=== PATIENT | female | born 1985 | race Caucasian/White ===

== ENCOUNTER 2016-08-04 11:56 | Emergency (ER) | payer OTHER ==
[~2016-08-04] VITALS: Ht 162.6 cm; Wt 84.6 kg
[2016-08-04 13:14] LABS: BASOPHIL COUNT 0.1 K/uL (0-0.1); EOSINOPHIL (%) 2.5 % (0-5); EOSINOPHIL COUNT 0.2 K/uL (0-0.3); HEMATOCRIT 39.6 % (36.0-46.0); IMMATURE GRANULOCYTE (%) 0.4 % (0.0-0.7); IMMATURE GRANULOCYTE COUNT 0.4 K/uL; LYMPHOCYTE COUNT 3.1 K/uL (1.0-2.8); MCH 31.6 PG (29.0-34.0); MCHC 35.1 G/DL (30.0-36.0); MEAN PLAT.VOLUME 9.4 uM^3 (9.5-12.4); MONOCYTE (%) 9.3 % (3-12); MONOCYTE COUNT 0.9 K/uL (0-0.8); NEUTROPHIL (%) 54.2 % (45-76); NEUTROPHIL COUNT 5.1 K/uL (1.8-6.4); PLATELET COUNT 313 K/uL (156-360); RBC DIS.WIDTH-CV 12.5 % (11.8-14.6); RBC DIS.WIDTH-SD 40.1 % (39-53); WHITE BLOOD COUNT 9.5 K/uL (4.1-10.2)
[2016-08-04 13:29] LABS: CHLORIDE 106 mEq/L (99-109)
[2016-08-04 13:30] LABS: SODIUM 140 mEq/L (136-147)
[2016-08-04 13:32] LABS: GLUCOSE 96 mg/dL (70-99)
[2016-08-04 13:33] LABS: ANION GAP 14 MEQ/L (2-14)
[2016-08-04 13:34] LABS: TOTAL BILIRUBIN 0.4 mg/dL (0.0-1.0)
[2016-08-04 13:35] LABS: ALKALINE PHOSPHATASE 59 IU/L (3-129); SERUM ETHYL ALCOHOL < 10 mg/dL
[2016-08-04 13:36] LABS: GFR ESTIMATE (CALCULATED) > 59 mL/min/
[2016-08-04 13:37] LABS: UREA NITROGEN (BUN) 14 mg/dL (9-23)
[2016-08-04 18:56] VITALS: BP 94/66
== END 2016-08-04 19:06 | disposition home or self-care (01) ==
LOC: EME → EDBD 11:56 → EME 11:56 → EDOF 14:41 → EME 18:56
PROVIDERS: Emergency Medicine
DX: R41.82 Altered mental status, unspecified (principal); T42.6X5A Adverse effect of other antiepileptic and sedative-hypnotic drugs, initial encounter; F33.1 Major depressive disorder, recurrent, moderate; F17.200 Nicotine dependence, unspecified, uncomplicated; Z71.6 Tobacco abuse counseling
CPT/HCPCS: 80053; 85025; 90839; 99281; 99284; G0480

== ENCOUNTER 2016-10-10 15:19 | Emergency (ER) | payer OTHER ==
[~2016-10-10] VITALS: Ht 170.2 cm; Wt 83.3 kg
[2016-10-10 16:05] VITALS: BP 139/99
== END 2016-10-10 16:06 | disposition home or self-care (01) ==
LOC: EME 15:19
DX: F10.129 Alcohol abuse with intoxication, unspecified (principal); F17.200 Nicotine dependence, unspecified, uncomplicated
CPT/HCPCS: 99281; 99284

== ENCOUNTER 2016-12-21 02:44 | Emergency (ER) | payer OTHER ==
[~2016-12-21] VITALS: Ht 170.2 cm; Wt 83.4 kg
[2016-12-21] MEDS ORDERED: ADDERALL30 MG PO (02:56)
[2016-12-21] MEDS ORDERED: ambien (02:56)
[2016-12-21 03:12] LABS: HEMATOCRIT 47.4 % (36.0-46.0); MCH 31.4 PG (29.0-34.0); MCHC 34.4 G/DL (30.0-36.0); MCV 91.3 FL (83-99); MEAN PLAT.VOLUME 8.5 uM^3 (9.5-12.4); PLATELET COUNT 371 K/uL (156-360); RBC DIS.WIDTH-CV 13.1 % (11.8-14.6); RBC DIS.WIDTH-SD 44.1 % (39-53); RED BLOOD COUNT 5.19 M/uL (3.80-5.20); WHITE BLOOD COUNT 20.1 K/uL (4.1-10.2)
[2016-12-21 03:21] LABS: CHLORIDE 106 mEq/L (99-109); POTASSIUM 4.1 mEq/L (3.7-5.4); SODIUM 141 mEq/L (136-147)
[2016-12-21 03:23] LABS: GLUCOSE 94 mg/dL (70-99)
[2016-12-21 03:26] LABS: ANION GAP 18 MEQ/L (2-14); SERUM ETHYL ALCOHOL < 10 mg/dL
[2016-12-21 03:27] LABS: GFR ESTIMATE (CALCULATED) 55 mL/min/
[2016-12-21 03:29] LABS: UREA NITROGEN (BUN) 16 mg/dL (9-23)
[2016-12-21 03:30] LABS: SALICYLATE < 5.0 MG/DL (15-30)
[2016-12-21 03:36] LABS: QUANTITATIVE HCG < 4.0 MIU/ML
[2016-12-21 03:46] LABS: TOTAL BILIRUBIN 0.4 mg/dL (0.0-1.0)
[2016-12-21 03:47] LABS: ALKALINE PHOSPHATASE 59 IU/L (3-129)
[2016-12-21 03:49] LABS: DIRECT BILIRUBIN 0.2 mg/dL (0.0-0.3)
[2016-12-21 03:50] LABS: LIPASE 25 U/L (1.0-51.0)
[2016-12-21 06:23] LABS: AMPHETAMINE NEGATIVE (500 ng/mL); BARBITURATES NEGATIVE (200 ng/mL); BENZODIAZEPINES NEGATIVE (150 ng/mL); COCAINE NEGATIVE (150 ng/mL); INTERNAL CONTROLS VALID? YES; METHADONE NEGATIVE (200 ng/mL); METHAMPHETAMINE NEGATIVE (500 ng/mL); OPIATES (MORPHINE) NEGATIVE (100 ng/mL); OXYCODONE NEGATIVE (100 ng/mL); PHENCYCLIDINE NEGATIVE (25 ng/mL); PROPOXYPHENE NEGATIVE (300 ng/mL); THC CANNABINOIDS NEGATIVE (50 ng/mL); TRICYCLIC ANTIDEPRESSANTS PRESUMPTIVE POSITIVE (300 ng/mL)
[2016-12-21 06:25] LABS: ADD MIUA? YES; BILIRUBIN NEGATIVE; BLOOD SMALL; COLOR YELLOW ((YELLOW)); GLUCOSE (STRIP) 50; KETONES 5; LEUKOCYTES NEGATIVE; NITRITE NEGATIVE; PROTEIN (STRIP) 100; SPECIFIC GRAVITY 1.017 (1.000-1.030); UROBILINOGEN 0.2 MG/DL (0.2-1.0)
[2016-12-21 06:46] LABS: BACTERIA 2+ /HPF; CASTS NONE SEEN /LPF; CRYSTALS NONE SEEN; EPITHELIAL CELLS 4+ /HPF; MUCUS NONE SEEN /LPF; RED BLOOD CELLS 0-5 /HPF (0-5); UCUL ADDED? YES
[2016-12-21 10:42] VITALS: BP 117/78
== END 2016-12-21 10:44 ==
LOC: EME 02:44
PROVIDERS: Physician Assistant
DX: F32.9 Major depressive disorder, single episode, unspecified (principal); Z91.14 Patient's other noncompliance with medication regimen; D72.829 Elevated white blood cell count, unspecified; E86.0 Dehydration; F60.3 Borderline personality disorder; F17.200 Nicotine dependence, unspecified, uncomplicated
CPT/HCPCS: 71020; 80048; 80076; 81003; 83605; 83690; 84702; 85027; 87040; 87086; 90837; 99281; 99284; G0480; J7030

== ENCOUNTER 2017-01-18 06:39 | Emergency (ER) | payer OTHER ==
[~2017-01-18] VITALS: Ht 170.2 cm; Wt 97.3 kg
[~2017-01-18 06:39] MED LIST: ADDERALL30 MG PO; ambien
[2017-01-18 08:00] LABS: BASOPHIL COUNT 0.1 K/uL (0-0.1); EOSINOPHIL (%) 2.7 % (0-5); EOSINOPHIL COUNT 0.2 K/uL (0-0.3); HEMATOCRIT 39.1 % (36.0-46.0); IMMATURE GRANULOCYTE (%) 0.5 % (0.0-0.7); INSTRUMENT ABS NEUTROPHIL CT 4.1 K/uL; LYMPHOCYTE COUNT 3.2 K/uL (1.0-2.8); MCH 31.6 PG (29.0-34.0); MCHC 34.8 G/DL (30.0-36.0); MCV 90.7 FL (83-99); MEAN PLAT.VOLUME 9.3 uM^3 (9.5-12.4); MONOCYTE (%) 9.5 % (3-12); MONOCYTE COUNT 0.8 K/uL (0-0.8); NEUTROPHIL (%) 49.1 % (45-76); NEUTROPHIL COUNT 4.1 K/uL (1.8-6.4); PLATELET COUNT 265 K/uL (156-360); RBC DIS.WIDTH-CV 11.9 % (11.8-14.6); RBC DIS.WIDTH-SD 39.8 % (39-53); RED BLOOD COUNT 4.31 M/uL (3.80-5.20); WHITE BLOOD COUNT 8.4 K/uL (4.1-10.2)
[2017-01-18 08:26] LABS: CHLORIDE 107 mEq/L (99-109); POTASSIUM 3.7 mEq/L (3.7-5.4); SODIUM 140 mEq/L (136-147)
[2017-01-18 08:28] LABS: GLUCOSE 112 mg/dL (70-99)
[2017-01-18 08:29] LABS: ANION GAP 7 MEQ/L (2-14)
[2017-01-18 08:30] LABS: TOTAL BILIRUBIN 0.3 mg/dL (0.0-1.0)
[2017-01-18 08:31] LABS: ALKALINE PHOSPHATASE 59 IU/L (3-129)
[2017-01-18 08:32] LABS: GFR ESTIMATE (CALCULATED) > 59 mL/min/
[2017-01-18 08:33] LABS: UREA NITROGEN (BUN) 21 mg/dL (9-23)
[2017-01-18 08:35] LABS: LIPASE 24 U/L (1.0-51.0)
[2017-01-18 10:33] LABS: ADD MIUA? YES; BILIRUBIN NEGATIVE; BLOOD NEGATIVE; COLOR YELLOW ((YELLOW)); GLUCOSE (STRIP) NEGATIVE; KETONES NEGATIVE; LEUKOCYTES NEGATIVE; NITRITE NEGATIVE; PROTEIN (STRIP) NEGATIVE; SPECIFIC GRAVITY 1.019 (1.000-1.030); UROBILINOGEN 0.2 MG/DL (0.2-1.0)
[2017-01-18 10:35] LABS: INTERNAL CONTROL VALID? YES
[2017-01-18 10:44] LABS: BACTERIA RARE /HPF; EPITHELIAL CELLS 2+ /HPF; MUCUS TRACE /LPF; RED BLOOD CELLS 0-5 /HPF (0-5); UCUL ADDED? NO; WHITE BLOOD CELLS 0-5 /HPF (0-5)
[2017-01-18] MEDS ORDERED: ZOFRAN ODT4 MG PO (11:18)
[2017-01-18 11:21] VITALS: BP 112/86
== END 2017-01-18 11:36 | disposition home or self-care (01) ==
LOC: EME → EDBD 06:39 → EME 11:36
PROVIDERS: Emergency Medicine
DX: B34.9 Viral infection, unspecified (principal); R10.13 Epigastric pain; R11.2 Nausea with vomiting, unspecified; R51 Headache; R53.1 Weakness; F17.200 Nicotine dependence, unspecified, uncomplicated
CPT/HCPCS: 80053; 81003; 83690; 84703; 85025; 93005; 99281; 99284; J2060; J2405; J2765; J7030

== ENCOUNTER 2017-02-24 01:20 | Emergency (ER) | payer OTHER ==
[~2017-02-24] VITALS: Ht 170.2 cm; Wt 81.8 kg
[~2017-02-24 01:20] MED LIST changes: +ZOFRAN ODT4 MG PO
[2017-02-24 03:48] VITALS: BP 103/82
== END 2017-02-24 03:50 | disposition home or self-care (01) ==
LOC: EME 01:20 → EXP 01:20
PROC: 0HQLXZZ Repair Left Lower Leg Skin, External Approach (ICD-10-PCS; principal; 2017-02-24)
DX: S81.012A Laceration without foreign body, left knee, initial encounter (principal); W19.XXXA Unspecified fall, initial encounter; Y93.01 Activity, walking, marching and hiking; F17.200 Nicotine dependence, unspecified, uncomplicated
CPT/HCPCS: 73564; 99281; 99284

== ENCOUNTER 2017-12-05 13:03 | Emergency (ER) | payer OTHER ==
[~2017-12-05] VITALS: Ht 170.2 cm; Wt 88.9 kg
[2017-12-05 14:06] LABS: HEMATOCRIT 45.1 % (36.0-46.0); HEMOGLOBIN 15.8 G/DL (11.9-15.5); MCH 31.9 PG (29.0-34.0); MCV 91.1 FL (83-99); PLATELET COUNT 245 K/uL (156-360); RBC DIS.WIDTH-CV 12.7 % (11.8-14.6); RED BLOOD COUNT 4.95 M/uL (3.80-5.20); WHITE BLOOD COUNT 8.7 K/uL (4.1-10.2)
[2017-12-05 14:18] LABS: CHLORIDE 101 mEq/L (99-109); POTASSIUM 4.2 mEq/L (3.7-5.4); SODIUM 136 mEq/L (136-147)
[2017-12-05 14:19] LABS: GLUCOSE 83 mg/dL (70-99)
[2017-12-05 14:23] LABS: CREATININE 0.7 mg/dL (0.6-1.3); GFR ESTIMATE (CALCULATED) > 59 mL/min/
[2017-12-05 14:24] LABS: UREA NITROGEN (BUN) 22 mg/dL (9-23)
[2017-12-05 16:29] VITALS: BP 127/95
== END 2017-12-05 16:30 | disposition home or self-care (01) ==
LOC: EME 13:03
DX: R53.83 Other fatigue (principal); G47.00 Insomnia, unspecified; E04.9 Nontoxic goiter, unspecified; R94.6 Abnormal results of thyroid function studies; Z80.8 Family history of malignant neoplasm of other organs or systems; Z83.49 Family history of other endocrine, nutritional and metabolic diseases; R21 Rash and other nonspecific skin eruption; R05 Cough; J34.89 Other specified disorders of nose and nasal sinuses; F17.200 Nicotine dependence, unspecified, uncomplicated
CPT/HCPCS: 80048; 84443; 85027; 87651 90; 99281; 99284

== ENCOUNTER → 2018-01-01 | Outpatient (CLI) | payer OTHER | END | disposition home or self-care (01) | LOC: EKG 11-15 13:00 | DX: I07.1 Rheumatic tricuspid insufficiency (principal); R94.31 Abnormal electrocardiogram [ECG] [EKG] | CPT/HCPCS: 93306 ==